=== PATIENT | female | born 1975 | race Hispanic/Latino ===

== ENCOUNTER 2023-11-18 01:08 | Inpatient (IN) | payer SELFPAY ==
[2023-11-18 01:53] LABS: #Eosinphils 0.1 thou/uL (0.0-0.7); #Monocytes 0.5 thou/uL (0.11-0.59); #Neutrophils 3.9 thou/uL (1.40-6.50); %Basophils 0.5 % (0.0-1.0); %Eosinophils 1.4 % (0.0-10.0); %Monocytes 6.8 % (0.0-10.0); Hematocrit 36.7 % (36.0-47.0); Mean Corpuscular HGB CONC 35.4 g/dL (32.0-36.0); Mean Corpuscular Hemoglobin 32.3 pg (27.0-31.0); Mean Corpuscular Volume 91.3 fl (78.0-98.0); Mean Platelet Volume 9.6 fL (7.4-10.4); Platelet Count 188 10x3/uL (130-400); Red Blood Cell (RBC) Count 4.02 mill/uL (4.20-5.40); White Blood Cell (WBC) Count 7.8 10x3/uL (4.8-10.8)
[2023-11-18] MEDS ORDERED: Morphine 4 MG/ML VIAL ONE (02:01)
[2023-11-18] MEDS ORDERED: Ondansetron PF 4 MG/2 ML Vial ONE (02:01)
[2023-11-18 02:19] LABS: Troponin I Less than 0.010 ng/mL (< 0.028)
[2023-11-18 02:21] LABS: ALT (SGPT) 44 U/L (8-55); AST (SGOT) 84 U/L (5-34); Alkaline Phosphatase 83 U/L (40-110); Anion Gap 12 mmol/L (10-20); BUN (Urea Nitrogen) 15 mg/dL (7.0-18.7); Bilirubin, Total 1.7 mg/dL (0.2-1.2); Calc. Creatinine Clearance 0 mL/min (70-130); Calcium 8.9 mg/dL (7.8-10.44); Carbon Dioxide 27 mmol/L (22-29); Chloride 103 mmol/L (98-107); Estimated GFR 97; Globulin 2.5 g/dL (2.4-3.5); Glucose 132 mg/dL (70-105); Lipase 38 U/L (8-78); Potassium 3.5 mmol/L (3.5-5.1); Protein, Total 6.5 g/dL (6.0-8.3); Sodium 138 mmol/L (136-145)
[2023-11-18 06:49] VITALS: BMI 43.3
[2023-11-18] MEDS ORDERED: Ondansetron ODT 4 MG TAB PO PRN (09:16)
[2023-11-18] MEDS ORDERED: Ondansetron PF 4 MG/2 ML Vial IVP PRN (09:16)
[2023-11-18] MEDS ORDERED: Acetaminophen 650 MG Suppository PR PRN (09:16)
[2023-11-18] MEDS ORDERED: Losartan 25 MG TAB ONE (10:29)
[2023-11-18] MEDS: Losartan 25 MG TAB PO SCH (11:15)
[2023-11-18] MEDS: Sodium Chloride 0.9% 1,000 ML IV SCH (11:16)
[2023-11-18] MEDS ORDERED: Iopamidol-370 76% 500 ML MDV (1 ML CHARGE) ONE (14:07)
[2023-11-18 19:16] LABS: Troponin I Less than 0.010 ng/mL (< 0.028)
[2023-11-18 22:41] LABS: Troponin I Less than 0.010 ng/mL (< 0.028)
[2023-11-18] MEDS: Acetaminophen 325 MG TAB PO PRN (22:51)
[2023-11-19] MEDS: Morphine 2 MG/ML VIAL SLOW IVP PRN (03:43)
[2023-11-19 05:03] LABS: #Eosinphils 0.1 thou/uL (0.0-0.7); #Monocytes 0.3 thou/uL (0.11-0.59); #Neutrophils 2.2 thou/uL (1.40-6.50); %Basophils 0.6 % (0.0-1.0); %Eosinophils 2.3 % (0.0-10.0); %Lymphocytes 44.1 % (21.0-51.0); %Monocytes 6.1 % (0.0-10.0); %Neutrophils 46.5 % (42.0-75.0); Hematocrit 36.4 % (36.0-47.0); Hemoglobin 12.5 g/dL (12.0-16.0); Mean Corpuscular HGB CONC 34.3 g/dL (32.0-36.0); Mean Corpuscular Hemoglobin 32.5 pg (27.0-31.0); Mean Corpuscular Volume 94.5 fl (78.0-98.0); Mean Platelet Volume 9.8 fL (7.4-10.4); Platelet Count 185 10x3/uL (130-400); RBC Distribution Width 12.4 % (11.5-14.5); Red Blood Cell (RBC) Count 3.85 mill/uL (4.20-5.40); White Blood Cell (WBC) Count 4.7 10x3/uL (4.8-10.8)
[2023-11-19 05:30] LABS: ALT (SGPT) 383 U/L (8-55); AST (SGOT) 279 U/L (5-34); Albumin 3.6 g/dL (3.5-5.0); Alkaline Phosphatase 123 U/L (40-110); Anion Gap 10 mmol/L (10-20); BUN (Urea Nitrogen) 9 mg/dL (7.0-18.7); Bilirubin, Total 2.1 mg/dL (0.2-1.2); Calc. Creatinine Clearance 200 mL/min (70-130); Calcium 8.3 mg/dL (7.8-10.44); Carbon Dioxide 28 mmol/L (22-29); Chloride 107 mmol/L (98-107); Estimated GFR 110; Globulin 2.3 g/dL (2.4-3.5); Glucose 103 mg/dL (70-105); Potassium 3.8 mmol/L (3.5-5.1); Protein, Total 5.9 g/dL (6.0-8.3); Sodium 141 mmol/L (136-145)
[2023-11-19] MEDS: Losartan 25 MG TAB PO SCH (08:30)
[2023-11-19] MEDS ORDERED: Iopamidol 30 ML ONE (11:19)
[2023-11-19] MEDS ORDERED: Indomethacin 50 MG SUPP ONE (11:21)
[2023-11-19] MEDS ORDERED: Lidocaine 2% PF 5 ML VIAL ONE (11:41)
[2023-11-19] MEDS ORDERED: Rocuronium Bromide 10 MG/ML (10ML VIAL) ONE (11:41)
[2023-11-19] MEDS ORDERED: fentaNYL PF 100 MCG/2 ML SYRINGE ONE (11:42)
[2023-11-19] MEDS ORDERED: PROPOFOL 20 ML ONE (11:42)
[2023-11-19] MEDS ORDERED: Ondansetron PF 4 MG/2 ML Vial ONE (11:44)
[2023-11-19] MEDS ORDERED: Glycopyrrolate 0.2 MG/ML 5 ML SYRINGE ONE (11:44)
[2023-11-19] MEDS ORDERED: NEOSTIGMINE 3 MG/3 ML SYR 3 MG/3 ML SYRINGE ONE (11:44)
[2023-11-19] MEDS ORDERED: Dexamethasone 20 MG/5 ML VIAL ONE (11:44)
[2023-11-19] MEDS ORDERED: SUGAMMADEX SODIUM 200 MG/2 ML VIAL ONE (13:03)
[2023-11-19] MEDS ORDERED: FLU VACC QS2023-24(6MOS UP)/PF 60 MCG/0.5 ML SYRINGE IM ONE (13:15)
[2023-11-19] MEDS: Metoclopramide HCl 10 MG (2 mL) VIAL IVP PRN (15:29)
[2023-11-20 05:33] LABS: #Monocytes 0.5 thou/uL (0.11-0.59); #Neutrophils 11.3 thou/uL (1.40-6.50); %Basophils 0.1 % (0.0-1.0); %Lymphocytes 11.3 % (21.0-51.0); %Neutrophils 83.8 % (42.0-75.0); Hematocrit 38.6 % (36.0-47.0); Hemoglobin 13.5 g/dL (12.0-16.0); Mean Corpuscular Hemoglobin 32.2 pg (27.0-31.0); Mean Corpuscular Volume 92.1 fl (78.0-98.0); Mean Platelet Volume 9.5 fL (7.4-10.4); Platelet Count 212 10x3/uL (130-400); RBC Distribution Width 12.1 % (11.5-14.5); Red Blood Cell (RBC) Count 4.19 mill/uL (4.20-5.40); White Blood Cell (WBC) Count 13.4 10x3/uL (4.8-10.8)
[2023-11-20 05:59] LABS: ALT (SGPT) 403 U/L (8-55); AST (SGOT) 173 U/L (5-34); Albumin 3.8 g/dL (3.5-5.0); Alkaline Phosphatase 178 U/L (40-110); Anion Gap 12 mmol/L (10-20); BUN (Urea Nitrogen) 5 mg/dL (7.0-18.7); Bilirubin, Total 1.5 mg/dL (0.2-1.2); Calc. Creatinine Clearance 207 mL/min (70-130); Calcium 8.8 mg/dL (7.8-10.44); Carbon Dioxide 24 mmol/L (22-29); Chloride 107 mmol/L (98-107); Estimated GFR 111; Globulin 2.5 g/dL (2.4-3.5); Glucose 176 mg/dL (70-105); Potassium 3.7 mmol/L (3.5-5.1); Protein, Total 6.3 g/dL (6.0-8.3); Sodium 139 mmol/L (136-145)
[2023-11-20 06:13] LABS: Lipase 4571 U/L (8-78)
[2023-11-20] MEDS: Sodium Chloride 0.9% 1,000 ML IV SCH ×2 (08:25→12:07)
[2023-11-20] MEDS: Ketorolac Tromethamine 30 MG (1 mL) VIAL IVP PRN (10:38)
[2023-11-20] MEDS: Morphine 2 MG/ML VIAL SLOW IVP PRN (12:07)
[2023-11-21 05:25] LABS: #Monocytes 0.8 thou/uL (0.11-0.59); #Neutrophils 7.2 thou/uL (1.40-6.50); %Basophils 0.3 % (0.0-1.0); %Eosinophils 0.3 % (0.0-10.0); %Lymphocytes 20.2 % (21.0-51.0); %Monocytes 8.3 % (0.0-10.0); %Neutrophils 70.6 % (42.0-75.0); Hematocrit 33.8 % (36.0-47.0); Hemoglobin 11.7 g/dL (12.0-16.0); Mean Corpuscular HGB CONC 34.6 g/dL (32.0-36.0); Mean Corpuscular Hemoglobin 32.3 pg (27.0-31.0); Mean Corpuscular Volume 93.4 fl (78.0-98.0); Platelet Count 177 10x3/uL (130-400); RBC Distribution Width 12.4 % (11.5-14.5); Red Blood Cell (RBC) Count 3.62 mill/uL (4.20-5.40); White Blood Cell (WBC) Count 10.1 10x3/uL (4.8-10.8)
[2023-11-21 05:47] LABS: ALT (SGPT) 235 U/L (8-55); AST (SGOT) 56 U/L (5-34); Albumin 3.4 g/dL (3.5-5.0); Alkaline Phosphatase 137 U/L (40-110); Anion Gap 10 mmol/L (10-20); BUN (Urea Nitrogen) 4 mg/dL (7.0-18.7); Bilirubin, Total 1.4 mg/dL (0.2-1.2); Calc. Creatinine Clearance 231 mL/min (70-130); Calcium 7.9 mg/dL (7.8-10.44); Carbon Dioxide 28 mmol/L (22-29); Chloride 106 mmol/L (98-107); Estimated GFR 114; Globulin 2.1 g/dL (2.4-3.5); Glucose 103 mg/dL (70-105); Lipase 880 U/L (8-78); Potassium 2.9 mmol/L (3.5-5.1); Protein, Total 5.5 g/dL (6.0-8.3); Sodium 141 mmol/L (136-145)
[2023-11-21] MEDS: Potassium Chloride 20 MEQ TAB PO SCH (19:54)
[2023-11-21] MEDS: Sodium Chloride 0.9% 1,000 ML IV SCH (19:57)
[2023-11-21 21:05] LABS: Magnesium 1.8 mg/dL (1.6-2.6)
[2023-11-22 05:23] LABS: #Eosinphils 0.1 thou/uL (0.0-0.7); #Neutrophils 6.2 thou/uL (1.40-6.50); %Basophils 0.3 % (0.0-1.0); %Lymphocytes 25.6 % (21.0-51.0); %Monocytes 10.4 % (0.0-10.0); %Neutrophils 62.4 % (42.0-75.0); Hematocrit 33.7 % (36.0-47.0); Hemoglobin 11.6 g/dL (12.0-16.0); Mean Corpuscular HGB CONC 34.4 g/dL (32.0-36.0); Mean Corpuscular Volume 93.1 fl (78.0-98.0); Mean Platelet Volume 9.2 fL (7.4-10.4); Platelet Count 171 10x3/uL (130-400); RBC Distribution Width 12.4 % (11.5-14.5); Red Blood Cell (RBC) Count 3.62 mill/uL (4.20-5.40)
[2023-11-22 06:06] LABS: ALT (SGPT) 147 U/L (8-55); Alkaline Phosphatase 125 U/L (40-110); Anion Gap 9 mmol/L (10-20); BUN (Urea Nitrogen) 6 mg/dL (7.0-18.7); Bilirubin, Total 1.9 mg/dL (0.2-1.2); Carbon Dioxide 28 mmol/L (22-29); Globulin 2.3 g/dL (2.4-3.5); Potassium 3.5 mmol/L (3.5-5.1)
[2023-11-22 06:22] LABS: AST (SGOT) 21 U/L (5-34); Albumin 3.4 g/dL (3.5-5.0); Calc. Creatinine Clearance 223 mL/min (70-130); Calcium 8.6 mg/dL (7.8-10.44); Chloride 107 mmol/L (98-107); Estimated GFR 113; Glucose 111 mg/dL (70-105); Lipase 74 U/L (8-78); Protein, Total 5.7 g/dL (6.0-8.3); Sodium 140 mmol/L (136-145)
[2023-11-22] MEDS: Lactulose 20 GM (30 mL) UDCUP PO SCH (10:20)
[2023-11-22 11:35] VITALS: BP 139/65; TEMP 98
== END 2023-11-22 13:18 | disposition home or self-care (01) | DRG 444 ==
LOC: ERS 01:08 → ERHOLD 06:01 → 2SW 13:53 → OBSVTOIN 11-20 07:16
PROVIDERS: ADMIT Student in an Organized Health Care Education/Training Program; ATTEND Hospitalist
PROC: 0FC98ZZ Extirpation of Matter from Common Bile Duct, Via Natural or Artificial Opening Endoscopic (ICD-10-PCS; principal; 2023-11-19)
DX: K80.50 Calculus of bile duct without cholangitis or cholecystitis without obstruction (principal); K85.90 Acute pancreatitis without necrosis or infection, unspecified; K91.89 Other postprocedural complications and disorders of digestive system; I10 Essential (primary) hypertension; R74.01 Elevation of levels of liver transaminase levels; R11.2 Nausea with vomiting, unspecified; Z79.899 Other long term (current) drug therapy; Z90.49 Acquired absence of other specified parts of digestive tract; Z98.890 Other specified postprocedural states; Z98.51 Tubal ligation status; Z90.89 Acquired absence of other organs
CPT/HCPCS: 36415; 71045; 74177; 74181; 74330; 76705; 80053; 83605; 83690; 83735; 84484; 85025; 87040; 93005; 96374; 96375; 96376; C1769; G0378; J1100; J1885; J2001; J2270; J2272; J2405; J2704; J2765; J7050; Q9967

== ENCOUNTER 2024-07-19 11:13 | Emergency (ER) | payer SELFPAY ==
[2024-07-19] MEDS ORDERED: Cyclobenzaprine 10 MG TAB ONE (12:04)
[2024-07-19] MEDS ORDERED: Ketorolac Tromethamine 30 MG (1 mL) VIAL ONE (12:04)
[2024-07-19] MEDS ORDERED: Acetaminophen/Codeine 30-300mg Tablet ONE (12:05)
[2024-07-19 12:32] LABS: Bacteria/HPF None Seen HPF (None Seen); Bilirubin Negative (Negative); Blood, Urine Negative (Negative); CAUTI Indications for Culture Dysuria,urgency,freq; Clarity Clear (Clear); Glucose, Urine (Dipstick) Normal (Negative); Ketone, Urine Negative (Negative); Leukocyte Negative Leu/uL (Negative); Nitrite Negative (Negative); Protein, Urine (Dipstick) Negative (Neg-Trace); RBC/HPF None Seen HPF (0-3); Specific Gravity, Urine 1.001 (1.002-1.036); Squamous Epithelial None Seen HPF (0-3); Urobilinogen Normal mg/dL (Less than 2); WBC/HPF None Seen HPF (0-3)
[2024-07-19 12:35] LABS: Urine Culture Reflex No No
== END 2024-07-19 12:27 | disposition home or self-care (01) ==
LOC: ERS 11:13
DX: S46.911A Strain of unspecified muscle, fascia and tendon at shoulder and upper arm level, right arm, initial encounter (principal); I10 Essential (primary) hypertension; X58.XXXA Exposure to other specified factors, initial encounter; Z79.84 Long term (current) use of oral hypoglycemic drugs; Z79.899 Other long term (current) drug therapy
CPT/HCPCS: 81001; 96372; 99283; J1885

== ENCOUNTER 2025-05-02 11:39 | Outpatient (CLI) | payer OTHER | END 2025-05-02 11:40 | disposition home or self-care (01) | LOC: MRI 11:39 | PROVIDERS: ATTEND Internal Medicine | DX: C90.00 Multiple myeloma not having achieved remission (principal); C79.51 Secondary malignant neoplasm of bone; H74.8X2 Other specified disorders of left middle ear and mastoid; M89.9 Disorder of bone, unspecified | CPT/HCPCS: 70553; 76376 ==

== ENCOUNTER 2025-05-08 14:50 | Outpatient (CLI) | payer OTHER | END 2025-05-08 14:51 | disposition home or self-care (01) | LOC: BICMAMMO 14:50 | PROVIDERS: ATTEND Family Medicine | DX: Z12.31 Encounter for screening mammogram for malignant neoplasm of breast (principal); Z80.3 Family history of malignant neoplasm of breast; Z85.79 Personal history of other malignant neoplasms of lymphoid, hematopoietic and related tissues | CPT/HCPCS: 77063; 77067 ==